=== PATIENT | female | born 1955 | race Caucasian/White ===

== ENCOUNTER 2021-02-19 12:10 | Outpatient (CLI) | payer OTHER ==
[2021-02-20 02:31] LABS: SARS-CoV-2 PCR by NAA Not Detected (NotDetected)
== END 2021-02-19 12:11 | disposition home or self-care (01) ==
LOC: CSHLAB 12:10
PROVIDERS: ATTEND Internal Medicine Gastroenterology
DX: Z20.822 Contact with and (suspected) exposure to COVID-19 (principal); K70.31 Alcoholic cirrhosis of liver with ascites; Z12.11 Encounter for screening for malignant neoplasm of colon
CPT/HCPCS: 87635; U0003; U0005

== ENCOUNTER 2021-02-24 08:00 | Day surgery (SDC) | payer OTHER ==
[2021-02-21 09:48] VITALS: BMI 22.1
[2021-02-24] MEDS ORDERED: Lidocaine 1% MPF 2 ML VIAL ONE (08:56)
[2021-02-24] MEDS ORDERED: PROPOFOL 60 ML ONE (10:31)
[2021-02-24] MEDS ORDERED: ePHEDrine 50 MG/ML VIAL ONE (10:46)
== END 2021-02-24 11:55 | disposition home or self-care (01) ==
LOC: CSHSDC 08:00
PROVIDERS: ATTEND Internal Medicine Gastroenterology
PROC: 0DB68ZX Excision of Stomach, Via Natural or Artificial Opening Endoscopic, Diagnostic (ICD-10-PCS; principal; 2021-02-24)
PROC: 0DJD8ZZ Inspection of Lower Intestinal Tract, Via Natural or Artificial Opening Endoscopic (ICD-10-PCS; principal; 2021-02-24)
DX: Z12.11 Encounter for screening for malignant neoplasm of colon (principal); K64.9 Unspecified hemorrhoids; Z86.010 Personal history of colon polyps; Z80.0 Family history of malignant neoplasm of digestive organs; K74.60 Unspecified cirrhosis of liver; I85.10 Secondary esophageal varices without bleeding; I86.4 Gastric varices; K76.6 Portal hypertension; K31.89 Other diseases of stomach and duodenum; K29.70 Gastritis, unspecified, without bleeding; I10 Essential (primary) hypertension; B18.2 Chronic viral hepatitis C; E78.5 Hyperlipidemia, unspecified; Z87.442 Personal history of urinary calculi; F17.210 Nicotine dependence, cigarettes, uncomplicated; Z79.899 Other long term (current) drug therapy; Z88.0 Allergy status to penicillin
CPT/HCPCS: 88305; J2704; J3490

== ENCOUNTER 2021-07-16 11:29 | Outpatient (CLI) | payer OTHER | END 2021-07-16 11:30 | disposition home or self-care (01) | LOC: CSHMAMMO 11:29 | PROVIDERS: ATTEND Internal Medicine | DX: Z12.31 Encounter for screening mammogram for malignant neoplasm of breast (principal) | CPT/HCPCS: 77063; 77067 ==

== ENCOUNTER 2022-04-13 14:49 | Emergency (ER) | payer OTHER | END 2022-04-13 17:10 | disposition home or self-care (01) | LOC: CSHERS 14:49 | DX: K82.8 Other specified diseases of gallbladder (principal); R19.7 Diarrhea, unspecified; I10 Essential (primary) hypertension; F17.210 Nicotine dependence, cigarettes, uncomplicated | CPT/HCPCS: 76705 ==

== ENCOUNTER 2022-05-07 09:45 | Outpatient (CLI) | payer OTHER | END 2022-05-07 09:46 | disposition home or self-care (01) | LOC: CSHLAB 09:45 | PROVIDERS: ATTEND Internal Medicine Gastroenterology | DX: Z20.822 Contact with and (suspected) exposure to COVID-19 (principal); Z12.11 Encounter for screening for malignant neoplasm of colon | CPT/HCPCS: U0003; U0005 ==

== ENCOUNTER 2022-05-11 08:09 | Day surgery (SDC) | payer OTHER ==
[2022-05-06 11:25] VITALS: BMI 21.9
[~2022-05-11 08:09] MED LIST: HYDROmorphone 0.5 MG/0.5 ML SYRINGE ONE
[2022-05-11] MEDS ORDERED: Lidocaine 1% MPF 2 ML VIAL ONE (08:55)
[2022-05-11] MEDS ORDERED: PROPOFOL 40 ML ONE (09:23)
[2022-05-11] MEDS ORDERED: Lidocaine 2% MPF 10 ML AMP (For Epidural Use) ONE (09:24)
== END 2022-05-11 10:49 | disposition home or self-care (01) ==
LOC: CSHSDC 08:09
PROVIDERS: ATTEND Internal Medicine Gastroenterology
PROC: 0DBL8ZX Excision of Transverse Colon, Via Natural or Artificial Opening Endoscopic, Diagnostic (ICD-10-PCS; principal; 2022-05-11)
PROC: 0DBK8ZX Excision of Ascending Colon, Via Natural or Artificial Opening Endoscopic, Diagnostic (ICD-10-PCS; principal; 2022-05-11)
PROC: 0DBN8ZX Excision of Sigmoid Colon, Via Natural or Artificial Opening Endoscopic, Diagnostic (ICD-10-PCS; principal; 2022-05-11)
DX: Z12.11 Encounter for screening for malignant neoplasm of colon (principal); K52.832 Lymphocytic colitis; K62.89 Other specified diseases of anus and rectum; K64.4 Residual hemorrhoidal skin tags; I10 Essential (primary) hypertension; E78.5 Hyperlipidemia, unspecified; F17.200 Nicotine dependence, unspecified, uncomplicated; Z88.0 Allergy status to penicillin; Z79.899 Other long term (current) drug therapy
CPT/HCPCS: 88305; J1170; J2704

== ENCOUNTER 2023-11-30 08:04 | Outpatient (CLI) | payer OTHER | END 2023-11-30 08:05 | disposition home or self-care (01) | LOC: CSHCP 08:04 | PROVIDERS: ATTEND Internal Medicine | DX: Z12.2 Encounter for screening for malignant neoplasm of respiratory organs (principal); F17.210 Nicotine dependence, cigarettes, uncomplicated; J44.9 Chronic obstructive pulmonary disease, unspecified; J43.2 Centrilobular emphysema; K76.9 Liver disease, unspecified | CPT/HCPCS: 71271; 94060; 94664; 94726; 94729; 94760 ==